=== PATIENT | female | born 1960 | race Caucasian/White ===

== ENCOUNTER 2017-08-20 05:41 | Emergency (ER) | payer MEDICARE ==
[2017-08-20] MEDS ORDERED: Sodium Chloride 0.9% 5 ML Syringe FLUSH PRN (06:52)
[2017-08-20] MEDS ORDERED: LORazepam 2 MG/ML SDV IVPUSH ONE ×2 (06:52→07:18)
[2017-08-20] MEDS ORDERED: Sodium Chloride 0.9% 1,000 ML IV ONE (06:52)
--- NOTE | 2017-08-20 07:06 | EDM.PDOC ---
ED HPI GENERAL MEDICAL PROBLEM - General Chief Complaint: General Stated Complaint: Really bad panic attack Time Seen by Provider: 08/20/17 06:51 Source of Information: Reports: Patient History Limitations: Reports: No Limitations - History of Present Illness INITIAL COMMENTS - FREE TEXT/NARRATIVE: Patient is a 57-year-old female who presents to the emergency department this morning with a complaint of a panic attack. Patient has a long-standing history of anxiety and panic attacks and is on chronic medication. Patient states that she moved to [facility] 2 months ago from [place] and was seen at the [facility] by Dr. Nazario. According to the patient, there was some issues on refilling medications. She had medications refilled by her physician in [place] one month ago. She ran out of her medications 2 days ago and presented to the [facility]. She states that she was a few minutes late and they refused to see her so she had a panic attack in the waiting room. Patient left facility and states that she has worsened since then. Patient has prescription bottle for lorazepam 1 mg 3 times a day 90. It was prescribed by a physician in [place] on 07/19/2017. Decided this morning that she needed to be seen in the emergency department. Patient oscillating between being completely coherent and acting mildly irrational. She denies homicidal or suicidal ideation and states that she has never considered either during the 15 years of her condition. Following a discussion where I let patient know that I can give her medicine in the emergency department to make her feel better and also a prescription to get through the weekend she seemed quite relieved. Patient does not want to follow-up at [facility], and I suggested that she contact the [facility] for possible follow-up. Patient denies chest pain, shortness of breath, headache, or fever. Onset: Gradual Duration: Chronic Severity: Moderate Improves with: Reports: Medication Worsens with: Reports: None Associated Symptoms: Reports: No Other Symptoms head Pain Score (Numeric/FACES): 7 - Related Data Allergies Allergy/AdvReac Type Severity Reaction Status Date / Time No Known Allergies Allergy Verified 08/20/17 05:47 Home Meds: Home Meds Acetaminophen/Diphenhydramine [Tylenol Pm Ex-Strength Caplet] 1 tab PO BEDTIME PRN 08/20/17 [History] Cholecalciferol (Vitamin D3) [Vitamin D] 50,000 units PO WEEKLY 08/20/17 [ History] Citalopram Hydrobromide [Celexa] 40 mg PO DAILY 08/20/17 [History] LORazepam 1 mg PO TID 08/20/17 [History] Topiramate [Topamax] 100 mg PO BID 08/20/17 [History] hydrOXYzine Pamoate [Vistaril] 100 mg PO Q8H 08/20/17 [History] ED ROS GENERAL - Review of Systems Review Of Systems: ROS reveals no pertinent complaints other than HPI. Constitutional: Reports: No Symptoms HEENT: Reports: No Symptoms Respiratory: Reports: No Symptoms Cardiovascular: Reports: No Symptoms Endocrine: Reports: No Symptoms GI/Abdominal: Reports: No Symptoms : Reports: No Symptoms Musculoskeletal: Reports: No Symptoms Skin: Reports: No Symptoms Neurological: Reports: No Symptoms Psychiatric: Reports: Anxiety. Denies: Homicidal Ideation, Suicidal Ideation Hematologic/Lymphatic: Reports: No Symptoms Immunologic: Reports: No Symptoms ED EXAM, GENERAL - Physical Exam Exam: See Below Exam Limited By: No Limitations General Appearance: Alert, WD/WN, Moderate Distress Nose: Normal Inspection, Normal Mucosa, No Blood Throat/Mouth: Normal Inspection, Normal Oropharynx, No Airway Compromise Head: Atraumatic, Normocephalic Respiratory/Chest: No Respiratory Distress, Lungs Clear, Normal Breath Sounds, No Accessory Muscle Use Cardiovascular: Regular Rate, Rhythm, No Murmur GI/Abdominal: Normal Bowel Sounds, Soft Extremities: Normal Inspection, No Pedal Edema Neurological: Alert, Oriented, Normal Cognition Psychiatric: Anxious, Tearful Skin Exam: Warm, Dry, Intact, Normal Color, No Rash Course - Vital Signs Last Recorded V/S: Last Vital Signs Temp 96.3 F 08/20/17 06:00 Pulse 98 08/20/17 06:00 Resp 22 H 08/20/17 06:00 BP 115/32 L 08/20/17 06:00 Pulse Ox 95 08/20/17 06:00 - Orders/Labs/Meds Orders: Active Orders 24 hr Category Date Time Status Peripheral IV Care [RC] . DIRECTED Care 08/20/17 06:52 Ordered LORazepam [Ativan] Med 08/20/17 06:52 Once 1 mg IVPUSH ONETIME ONE Sodium Chloride 0.9% @ 999 MLS/HR (1000ml) Med 08/20/17 06:52 Ordered Sodium Chloride 0.9% [Normal Saline] 1,000 ml IV .BOLUS Sodium Chloride 0.9% [Syrex Flush] Med 08/20/17 06:52 Ordered 5 ml FLUSH Q8HR PRN Peripheral IV Insertion Adult [OM.PC] Routine Oth 08/20/17 06:52 Ordered Medication Orders Sodium Chloride (Normal Saline) 1,000 mls @ 999 mls/hr IV .BOLUS ONE Stop: 08/20/17 07:52 Lorazepam (Ativan) 1 mg IVPUSH ONETIME ONE Stop: 08/20/17 06:53 Meds: Medications Generic Name Dose Route Start Last Admin Trade Name Freq PRN Reason Stop Dose Admin Sodium Chloride 1,000 mls @ 999 mls/hr 08/20/17 06:52 Normal Saline IV 08/20/17 07:52 .BOLUS ONE Lorazepam 1 mg 08/20/17 06:52 Ativan IVPUSH 08/20/17 06:53 ONETIME ONE - Re-Assessments/Exams Free Text/Narrative Re-Assessment/Exam: 08/20/17 07:21 Patient afebrile, nontoxic appearing, vital signs stable, feels much better after IV Ativan. Patient will follow-up at [facility], or return to emergency department if symptoms continue or worsen. 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 Schedule appointment today. Return to the emergency department sooner if symptoms continue or worsen. Take medication as directed. - My Orders Last 24 Hours: My Active Orders 08/20/17 06:52 Peripheral IV Care [RC] . DIRECTED LORazepam [Ativan] 1 mg IVPUSH ONETIME ONE Sodium Chloride 0.9% @ 999 MLS/HR (1000ml) Sodium Chloride 0.9% [Normal Saline] 1,000 ml IV .BOLUS Sodium Chloride 0.9% [Syrex Flush] 5 ml FLUSH Q8HR PRN Peripheral IV Insertion Adult [OM.PC] Routine - Assessment/Plan Last 24 Hours: My Active Orders 08/20/17 06:52 Peripheral IV Care [RC] . DIRECTED LORazepam [Ativan] 1 mg IVPUSH ONETIME ONE Sodium Chloride 0.9% @ 999 MLS/HR (1000ml) Sodium Chloride 0.9% [Normal Saline] 1,000 ml IV .BOLUS Sodium Chloride 0.9% [Syrex Flush] 5 ml FLUSH Q8HR PRN Peripheral IV Insertion Adult [OM.PC] Routine Assessment:: Anxiety, panic attack Plan: Follow-up at [facility]
== END 2017-08-20 08:20 | disposition home or self-care (01) ==
LOC: KA.ED 05:41
DX: F41.0 Panic disorder [episodic paroxysmal anxiety] (principal); Z79.899 Other long term (current) drug therapy
CPT/HCPCS: 96361; 96374; 96375; 99283; J2060; J7030

== ENCOUNTER 2017-09-15 16:05 | Observation (INO) | payer MEDICARE ==
[2017-09-15 16:30] LABS: CHLORIDE,CL 106 mmol/L (98-115); SODIUM,NA 141 mmol/L (136-145)
[2017-09-15] MEDS: Ondansetron 4 MG/2 ML SDV IVPUSH PRN ×2 (16:58→21:33)
[2017-09-15] MEDS: HYDROmorphone 1 MG/ML Syringe IVPUSH PRN ×5 (17:10→22:30)
[2017-09-15] MEDS: Sodium Chloride 0.9% 50 ML IV SCH ×2 (18:12→19:04)
[2017-09-15] MEDS: Dextrose 5%-0.45% NaCl 1,000 ML IV SCH (18:13)
[2017-09-15] MEDS ORDERED: Magnesium Hydroxide 400 MG/5 ML Susp 30 ML Cup PO ONE (18:49)
[2017-09-15] MEDS: Iopamidol 612 MG/ML 75 ML Bottle IV ONE (19:04)
[2017-09-15] MEDS ORDERED: Bisacodyl 10 MG Supp RECTAL ONE (20:51)
[2017-09-15] MEDS ORDERED: hydrOXYzine Pamoate 25 MG Cap PO PRN (21:31)
[2017-09-15] MEDS: Nicotine 21 MG/24 Hr Patch TRDERM SCH (21:34)
[2017-09-15] MEDS: LORazepam 0.5 MG Tab PO SCH (22:29)
[2017-09-15] MEDS ORDERED: Cyclobenzaprine 10 MG Tab PO ONE (22:32)
[2017-09-16] MEDS: HYDROmorphone 1 MG/ML Syringe IVPUSH PRN ×4 (00:04→07:36)
[2017-09-16] MEDS: Topiramate 25 MG Tab PO SCH ×3 (01:19→21:31)
[2017-09-16] MEDS: Dextrose 5%-0.45% NaCl 1,000 ML IV SCH ×2 (05:11→18:40)
[2017-09-16] MEDS: Ondansetron 4 MG/2 ML SDV IVPUSH PRN ×2 (05:30→12:56)
[2017-09-16] MEDS ORDERED: Magnesium Hydroxide 400 MG/5 ML Susp 30 ML Cup PO ONE ×2 (06:03→09:00)
[2017-09-16] MEDS: LORazepam 0.5 MG Tab PO SCH ×3 (07:37→21:30)
[2017-09-16] MEDS ORDERED: Sodium Phosphate,Monobasic/Sodium Phosphate,Dibasic Enema 133 ML Bottle RECTAL ONE (08:42)
[2017-09-16] MEDS ORDERED: CARISOPRODOL 350 MG PO PRN (08:45)
[2017-09-16] MEDS ORDERED: Acetaminophen 500 MG Tab PO PRN (08:45)
[2017-09-16] MEDS ORDERED: Citalopram 20 MG Tab PO SCH (09:00)
[2017-09-16] MEDS ORDERED: LORazepam 0.5 MG Tab PO SCH (09:00)
[2017-09-16] MEDS ORDERED: Polyethylene Glycol 3350 Powder 17 GM Packet PO SCH (09:00)
[2017-09-16] MEDS ORDERED: TOPIRAMATE 100 MG PO SCH (09:00)
[2017-09-16] MEDS: Nicotine 21 MG/24 Hr Patch TRDERM SCH (09:15)
[2017-09-16] MEDS: Morphine 2 MG/ML Syringe IV PRN ×2 (09:24→11:27)
[2017-09-16] MEDS: hydrOXYzine Pamoate 25 MG Cap PO SCH ×3 (10:05→21:31)
[2017-09-16] MEDS: Iopamidol 612 MG/ML 75 ML Bottle IV ONE (11:34)
[2017-09-16] MEDS: Acetaminophen 325 MG Tab PO PRN ×2 (11:38→21:52)
[2017-09-16] MEDS ORDERED: Morphine 2 MG/ML Syringe IVPUSH ONE (12:50)
--- NOTE | 2017-09-16 14:12 | PN ---
09/16/2017PATIENT NAME: ARLENE COTTO This is a 57-year-old female who was admitted yesterday with constipation, abdominal bloating, nausea, and poor appetite. Lab work yesterday showed a normal white count of 8.3. There were no abnormalities on the chemistry panel. She has only one kidney with the right kidney being markedly atrophic according to the CAT scan that was performed yesterday. I will elaborate more on the CAT scan later. Renal function yesterday showed a BUN of 15 and a creatinine of 1.12 and a GFR of 51. Lab results from today shows a white blood cell count of 13.6 with a left shift of neutrophils being 73.8%. Chemistry panel today shows an elevated creatinine of 1.29, yesterday normal at 1.12. This may be secondary to the contrast dye that she received prior to her CAT scan. She received intravenous contrast yesterday. GFR today is 43. Liver function tests were normal. CAT scan was performed yesterday after admission and showed marked atrophy of the right kidney. There was moderate stool throughout the colon with a normal appendix. No ileus or obstruction. No hernia, abscess, or inflammatory process. There is minimal diverticulosis of the left hemicolon. The patient has been using Dilaudid for pain. She requires the Dilaudid every hour. Apparently, our pharmacy is low on Dilaudid and we have switched this now to morphine which the patient says is not as effective. She is quite uncomfortable yet as she has not had a bowel movement. She has had several doses of milk of magnesia as well as a rectal suppository without any results. We did add a clear liquid diet in today. She is tolerating that well. She has had some nausea without any vomiting. She has received Zofran for the same. PHYSICAL EXAMINATION: VITAL SIGNS: Today, temp is 97.6, pulse 91, respirations 16, blood pressure 117/59, oxygen saturation is 95% on room air. SKIN: Warm and dry to touch. HEART: Normal. LUNGS: Normal. ABDOMEN: She does have a distended abdomen which is somewhat tender to touch. Bowel sounds are high pitched with active bowel sounds in all four quadrants. IMPRESSION: 1. Constipation. We will give her MiraLAX today as well as an enema. Hopefully, we can get her to move some stool through her colon. The CT scan did not show any ileus or obstruction. There is no abscess or inflammatory process. No hernias either. 2. Leukocytosis. White count yesterday was normal, today it is 13.6 with a mild left shift. She is afebrile. I do not feel that antibiotics are warranted at this time. I do not believe that it is an infective process. 3. Elevated creatinine in a 57-year-old patient with a history of marked atrophy of the right kidney. We will continue IV hydration today and encourage fluids. We did discuss possible later discharge this afternoon. However, due to the abnormalities in her lab work, I would like her to stay till tomorrow so we can monitor these to normal. She is agreeable with this plan. I did review her lab work as well as her CAT scan results with her. We did have a discussion in regard to the frequent use of the narcotic pain medication. The narcotics may serve too slow the colon down even more. She verbalizes understanding. /[id number]/MODL
[2017-09-16] MEDS ORDERED: LORazepam 2 MG/ML SDV IVPUSH ONE (14:15)
[2017-09-16] MEDS ORDERED: Ondansetron 4 MG Tab.DIS PO PRN (17:00)
[2017-09-16] MEDS ORDERED: diphenhydrAMINE 25 MG Cap PO PRN (21:00)
[2017-09-17] MEDS ORDERED: Cholecalciferol (Vitamin D3) 1,000 Unit Tab PO SCH (09:00)
--- NOTE | 2017-09-17 14:46 | PN ---
09/16/2017PATIENT NAME: ARLENE COTTO ADDITIONAL PROGRESS NOTE This is a 57-year-old female, who was admitted yesterday with constipation. Her CT did confirm moderate amount of colonic stool. She has started having stool and it does have some visible blood in it. We have stool tests pending for her. I did discuss the case over the phone with Dr. Pamella Ness. She advised stopping the narcotic pain medications due to the fact that it slows down the transit time of the colon. The patient has been requiring high doses of narcotic medications. When I spoke with the patient regarding this, she became very terse and used several phrases of profanity, threatened to leave the facility. We did have a long discussion in regard to pain control. She is limited as far as nonsteroidals due to the fact that she has an atrophic right kidney. I consulted with pharmacy, who recommended trying orphenadrine 60 mg IV b.i.d. This is a skeletal muscle relaxant. This may help her pain. In addition to this, we will give her one time dose of intravenous Ativan. The patient does take lorazepam 1 mg p.o. t.i.d. at home. The patient seems agreeable to this. Other options that we discussed were possibly Bentyl and/or Solu-Medrol. We will try this combination at this time. The patient does take Soma or carisoprodol at home as a muscle relaxant. This is not on her formulary. I did order Flexeril in place of the Soma; however, the patient is not able to take it as it causes her to be more stiff per her report. As stated before, stool samples have been obtained on the patient's stool. They are still pending. Test pending include C. diff toxin, stool culture, Hemoccult of stool, and white blood cells of stool. Fecal Helicobacter pylori was also ordered. /[id number]/MODL
== END 2017-09-16 22:55 | disposition left against medical advice (07) ==
LOC: KA.OC 16:05 → KA.MS 16:14
DX: K59.00 Constipation, unspecified (principal); D72.829 Elevated white blood cell count, unspecified; R79.89 Other specified abnormal findings of blood chemistry; F41.9 Anxiety disorder, unspecified; F32.9 Major depressive disorder, single episode, unspecified; G43.909 Migraine, unspecified, not intractable, without status migrainosus; F17.210 Nicotine dependence, cigarettes, uncomplicated; Z79.899 Other long term (current) drug therapy
CPT/HCPCS: 36415; 74177; 80053; 82272; 85025; 87045; 87046; 87324; 89055; 96361; 96374; 96375; 96376; A9270-GY; G0378; J1170; J2060; J2270; J2360; J2405; J7042; J7050; Q0177; Q9967

== ENCOUNTER 2017-10-19 11:31 | Day surgery (SDC) | payer MEDICARE ==
[~2017-10-19 11:31] MED LIST: Lactated Ringers 1,000 ML IV SCH; Sodium Chloride 0.9% 5 ML Syringe FLUSH PRN
[2017-10-19] MEDS ORDERED: Propofol 200 MG/20 ML SDV ONE ×2 (12:02→12:10)
[2017-10-19] MEDS ORDERED: Midazolam 1 MG/ML 2 ML SDV ONE (12:02)
--- NOTE | 2017-10-19 12:59 | PCM.PN ---
- General Info Date of Service: 10/19/17 - Review of Systems Systems Review Comment:: 57-year-old female here for colonoscopy. She has a history of left sided abdominal pain. Recent CT scan also showed filling defect in the right colon. She is medically stable to proceed today. There is been no significant recent change in her health status. I discussed the proposed colonoscopy with the patient. Risks and possible complications have been discussed. She agrees to proceed. - Patient Data Vitals - Most Recent: Last Vital Signs Temp 98 F 10/19/17 11:15 Pulse 70 10/19/17 11:15 Resp 16 10/19/17 11:15 BP 108/61 10/19/17 11:15 Pulse Ox 98 10/19/17 11:15 Weight - Most Recent: 69.4 kg Lab Results Last 24 Hours: Laboratory Results - last 24 hr 10/19/17 Range/Units 11:15 Urine HCG, Qual Negative (NEGATIVE) Med Orders - Current: Current Medications Lactated Ringer's (Ringers, Lactated) 1,000 mls @ 50 mls/hr IV ASDIRECTED SHANELL Last Admin: 10/19/17 12:50 Dose: 50 mls/hr Sodium Chloride (Syrex Flush) 5 ml FLUSH Q8HR PRN PRN Reason: Keep Vein Open - Problem List Review Problem List Initiated/Reviewed/Updated: Yes - My Orders Last 24 Hours: My Active Orders 10/18/17 14:20 Resuscitation Status Routine 10/19/17 11:15 Peripheral IV Care [RC] . DIRECTED Vital Signs [RC] PER UNIT ROUTINE HCG QUALITATIVE,URINE [URCHEM] Routine Lactated Ringers [Ringers, Lactated] 1,000 ml IV ASDIRECTED Sodium Chloride 0.9% [Syrex Flush] 5 ml FLUSH Q8HR PRN Peripheral IV Insertion Adult [OM.PC] Routine 10/19/17 11:45 Patient to Empty Bladder [RC] ASDIRECTED 10/19/17 12:00 Verify Patient Consent Obtain [RC] ASDIRECTED 10/19/17 Breakfast Nothing Per Oral Diet [DIET] - Assessment Assessment:: Abdominal pain Abnormal CT scan - Plan Plan:: Colonoscopy
[2017-10-19] MEDS ORDERED: Propofol 200 MG/20 ML SDV IV ONE (13:05)
[2017-10-19] MEDS ORDERED: Midazolam 1 MG/ML 2 ML SDV IV ONE (13:05)
--- NOTE | 2017-10-19 13:51 | PCM.OPNOTE ---
- General Post-Op/Procedure Note Date of Surgery/Procedure: 10/19/17 Operative Procedure(s): Colonoscopy Findings: Mild Sigmoid Diverticulosis No sign of ascending colon mass Pre Op Diagnosis: Abdominal Pain. Possible ascending colon mass Post-Op Diagnosis: Diverticulosis Anesthesia Technique: MAC Primary Surgeon: Malik Fermin Pathology: none EBL in mLs: 0 Complications: None Condition: Good
--- NOTE | 2017-10-20 01:41 | PROC ---
PROVIDER: Malik Fermin MD REFERRING PROVIDER: MELLY Meza PRE-PROCEDURE DIAGNOSIS: Abdominal pain and abnormal CT scan. POST-PROCEDURE DIAGNOSIS: Diverticulosis. PROCEDURE PERFORMED: Colonoscopy. INDICATIONS FOR SURGERY: This 57-year-old female has been having left-sided abdominal pain. This has persisted despite the use of antibiotics for treatment of presumed diverticulitis. A recent CT scan also showed a possible filling defect in the ascending colon. FINDINGS: The patient is noted to have a mild degree of uncomplicated and not acutely inflamed diverticulosis of the sigmoid colon. The diverticula are small and do not appear to show any degree of inflammation or other complication. The colon otherwise appears normal. No sign of a filling defect in the ascending or other areas of the colon is seen. PROCEDURE: The patient was taken to the operating room. She was given intravenous sedation and with her in the left lateral decubitus position, digital rectal exam was performed showing no rectal masses. The Olympus colonoscope was inserted into the rectum. Retroflexed examination of the rectal canal is performed. The scope was then carefully advanced under direct visualization through the entire length of the colon until the cecum was reached. Cecal acquisition is confirmed by noting the normal internal cecal anatomy including the appendiceal orifice and ileocecal valve. The cecum was carefully examined and then the scope was slowly withdrawn sequentially re- examining the colonic segments until the entire colon and rectum had been fully examined. The scope was removed and the patient was taken from the operating room in satisfactory condition. ESTIMATED BLOOD LOSS: Zero. COMPLICATIONS: None. PROGNOSIS: Good. /[id number]/MODL
== END 2017-10-19 14:50 | disposition home or self-care (01) ==
LOC: KA.SDS 11:31
PROVIDERS: ATTEND Surgery
DX: R10.32 Left lower quadrant pain (principal); R93.5 Abnormal findings on diagnostic imaging of other abdominal regions, including retroperitoneum; K57.30 Diverticulosis of large intestine without perforation or abscess without bleeding; F17.200 Nicotine dependence, unspecified, uncomplicated; Z79.899 Other long term (current) drug therapy
CPT/HCPCS: 00811; 81025; J2250; J2704; J7120

== ENCOUNTER 2017-12-30 14:55 | Observation (INO) | payer MEDICARE ==
[2017-12-30] MEDS ORDERED: Sodium Chloride 0.9% 5 ML Syringe FLUSH PRN (15:14)
[2017-12-30] MEDS ORDERED: Metoclopramide 10 MG/2 ML SDV IVPUSH ONE (15:37)
[2017-12-30] MEDS ORDERED: Sodium Chloride 0.9% 1,000 ML IV ONE (15:37)
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
[2017-12-30 15:49] LABS: ANION GAP 17.5 mmol/L (5-15); CHLORIDE,CL 106 mmol/L (98-115); SODIUM,NA 142 mmol/L (136-145)
[2017-12-30] MEDS ORDERED: Potassium Bicarbonate/Potassium Chloride 25 MEQ Tab.Eff PO ONE (15:57)
[2017-12-30] MEDS ORDERED: cefTRIAXone 1 GM Vial IVPUSH ONE (17:13)
[2017-12-30] MEDS ORDERED: cefTRIAXone 1 GM Vial ONE (17:13)
[2017-12-30] MEDS ORDERED: Ondansetron 4 MG/2 ML SDV ONE (17:13)
[2017-12-30] MEDS ORDERED: Temazepam 15 MG Cap PO PRN (17:14)
[2017-12-30] MEDS ORDERED: Nicotine 21 MG/24 Hr Patch TRDERM ONE (21:54)
[2017-12-30] MEDS: Ondansetron 4 MG/2 ML SDV IV PRN (21:55)
[2017-12-30] MEDS: LORazepam 0.5 MG Tab PO PRN (22:06)
[2017-12-31] MEDS: LORazepam 0.5 MG Tab PO PRN (01:10)
[2017-12-31] MEDS ORDERED: Iopamidol 612 MG/ML 75 ML Bottle IV ONE (07:41)
[2017-12-31] MEDS ORDERED: Diatrizoate Meglumine/Diatrizoate Sodium 37% 120 ML Bottle PO ONE (07:41)
[2017-12-31] MEDS ORDERED: Sodium Chloride 0.9% 50 ML IV SCH (07:45)
[2017-12-31 07:46] LABS: ANION GAP 18.5 mmol/L (5-15); CHLORIDE,CL 109 mmol/L (98-115); SODIUM,NA 149 mmol/L (136-145)
[2017-12-31] MEDS ORDERED: SOMA 350 MG PO PRN (09:08)
[2017-12-31] MEDS ORDERED: Promethazine 25 MG Tab PO PRN (09:08)
[2017-12-31] MEDS ORDERED: Acetaminophen/oxyCODONE 325-5 MG Tab PO PRN (09:08)
[2017-12-31] MEDS ORDERED: hydrOXYzine Pamoate 25 MG Cap PO PRN (09:08)
[2017-12-31] MEDS: Ondansetron 4 MG/2 ML SDV IV PRN ×3 (09:23→21:31)
[2017-12-31] MEDS: Citalopram 20 MG Tab PO SCH (10:04)
[2017-12-31] MEDS: LORazepam 0.5 MG Tab PO SCH ×3 (10:04→21:40)
[2017-12-31] MEDS: Nicotine 21 MG/24 Hr Patch TRDERM SCH (10:05)
[2017-12-31] MEDS: Sodium Chloride 0.9% 5 ML Syringe FLUSH PRN ×2 (10:09→15:41)
[2017-12-31] MEDS: Sodium Chloride 0.9% 1,000 ML IV SCH ×2 (10:09→17:45)
[2017-12-31] MEDS: Topiramate 25 MG Tab PO SCH ×2 (10:18→21:40)
[2017-12-31] MEDS: Gabapentin 300 MG Cap PO SCH ×2 (10:18→23:54)
[2017-12-31] MEDS: Cholecalciferol (Vitamin D3) 1,000 Unit Tab PO SCH (10:19)
[2017-12-31] MEDS: Ketorolac 30 MG/ML SDV IVPUSH PRN ×3 (11:25→23:55)
--- NOTE | 2017-12-31 13:36 | PN ---
12/31/2017 PATIENT NAME: ARLENE COTTO SUBJECTIVE: This is a 57-year-old female who presented to the emergency room yesterday afternoon with a complaint of abdominal pain. The patient has a history of chronic abdominal pain as well as diverticulosis and underwent a colonoscopy on 10/19/2017. Results of the colonoscopy showed small diverticula, but no acute inflammation. The patient stated to the emergency room provider that she had been having abdominal discomfort with nausea and vomiting for 5 days. She has been unable to consume food or hold down liquids as well as her regular medication. She did contact me prior to coming to the emergency room and I did advise the patient to go to the emergency department. Lab work upon admission to the emergency room, she did have a small bump in her white blood cell count at 11.76 with no left shift whatsoever. She was hypokalemic with a potassium of 2.9, it was treated with effervescent potassium in the emergency room. The remainder of her chemistry panel was normal with the exception of an anion gap of 17.5, not clear if this is clinically significant. She was found to have a urinary tract infection and was given one dose of ceftriaxone in the emergency room. She was also given a fluid bolus of normal saline in the emergency room as well. She was admitted for observation. In the emergency room, she also received Reglan as well as Zofran. Today, the patient states she is feeling somewhat better. She did have an abdominal CT this morning which showed no acute findings. The patient continues to have left-sided abdominal pain as well as some nausea. She was given a sleeping pill last night and apparently had the opposite effect on her, and she became quite restless. She was given a one time dose of lorazepam in addition to her regular scheduled lorazepam. She has tramadol scheduled for pain. She also has had a one-time prescription of oxycodone at home, which we will try not to give her here. It should be noted that the flat plate of the abdomen x-ray performed in the emergency room prior to admission showed a mild ileus. The patient has been tolerating a clear liquid diet. She does complain of a significant amount of nausea, however. OBJECTIVE: VITAL SIGNS: She is afebrile. Her pulse rate is 72, respirations 18, blood pressure is 107/58. Pulse oximetry is 99%. SKIN: Warm and dry to touch. HEART AND LUNGS: Normal. ABDOMEN: She does have some mild tenderness with palpation of the left lower quadrant. No guarding, rebound tenderness, or rigidity. She does have positive bowel sounds in all 4 quadrants. IMPRESSION: 1. Mild ileus causing abdominal pain and some nausea. We will continue giving Zofran as before. We will advance her diet to a full liquid diet today. CAT scan findings were reviewed. There are no acute findings. 2. Urinary tract infection. She will be given a daily dose of ceftriaxone 1 g intravenously. 3. Hypokalemia with an admission potassium of 2.9, which is now corrected to 3.3. 4. Nausea. We will treat her with antiemetics. I will also resume intravenous fluids of normal saline at 125 mL/hour. Labs will be repeated in the morning to include a CBC and CMP. She is a possible discharge for tomorrow. I will see her tomorrow and make that determination at that time. /[id number]/MODL
[2017-12-31] MEDS: traMADol 50 MG Tab PO PRN ×2 (14:37→21:38)
[2017-12-31] MEDS: cefTRIAXone 1 GM Vial IVPUSH SCH (15:39)
[2017-12-31] MEDS ORDERED: diphenhydrAMINE 25 MG Cap PO PRN (21:00)
[2017-12-31] MEDS ORDERED: Acetaminophen 500 MG Tab PO PRN (21:00)
[2018-01-01] MEDS: Sodium Chloride 0.9% 1,000 ML IV SCH ×2 (01:47→09:26)
[2018-01-01] MEDS: Ondansetron 4 MG/2 ML SDV IV PRN ×2 (02:44→09:07)
[2018-01-01] MEDS ORDERED: Diazepam 5 MG Tab PO ONE (02:55)
[2018-01-01] MEDS: traMADol 50 MG Tab PO PRN (05:21)
[2018-01-01] MEDS: Ketorolac 30 MG/ML SDV IVPUSH PRN ×2 (05:55→11:57)
[2018-01-01 08:03] LABS: ANION GAP 11.5 mmol/L (5-15); CHLORIDE,CL 113 mmol/L (98-115); SODIUM,NA 147 mmol/L (136-145)
[2018-01-01] MEDS ORDERED: Potassium Chloride 20 MEQ in Premix Bag 1 BAG IV ONE (08:35)
[2018-01-01] MEDS ORDERED: HYDROmorphone 1 MG/ML Syringe IVPUSH ONE (08:40)
[2018-01-01] MEDS: Citalopram 20 MG Tab PO SCH (09:18)
[2018-01-01] MEDS: Gabapentin 300 MG Cap PO SCH (09:18)
[2018-01-01] MEDS: Nicotine 21 MG/24 Hr Patch TRDERM SCH (09:19)
[2018-01-01] MEDS: Cholecalciferol (Vitamin D3) 1,000 Unit Tab PO SCH (09:19)
[2018-01-01] MEDS: Topiramate 25 MG Tab PO SCH (09:20)
[2018-01-01] MEDS: LORazepam 0.5 MG Tab PO SCH (09:49)
[2018-01-01] MEDS ORDERED: Ondansetron 4 MG Tab.DIS PO ONE (12:59)
[2018-01-01] MEDS: cefTRIAXone 1 GM Vial IVPUSH SCH (13:00)
--- NOTE | 2018-01-03 09:17 | DISCH ---
HOSPITAL COURSE: This is a 57-year-old female who was admitted to the hospital through the emergency room on 12/29/2017. She was having abdominal pain and having a difficult time with nausea and vomiting to the point where she had not taken anything considerably by oral route for several days. Flat plate and upright of the abdomen showed a mild ileus. She did have a CT scan yesterday which showed no acute process. She had been treated prior to that time for suspected diverticulitis. She was found to have a urinary tract infection, and she has been treated with ceftriaxone 1 g IM daily since admission. The patient is feeling better. She has had several bowel movements and feels as though the ileus has resolved. She is tolerating a full liquid diet. We will progress her diet today to a soft diet. She does complain of a headache. She received medication during the night, which was not effective. Due to the fact that she did have an ileus, we did try to refrain from narcotic pain medications. However, the Toradol that she has gotten IV is not effective. PHYSICAL EXAM ON DISCHARGE: VITAL SIGNS: Temp is 98.3, pulse is 55, respirations 20, blood pressure 131/75, her O2 saturation is 97% on room air. SKIN: Warm and dry to touch. HEART AND LUNGS: Normal. ABDOMEN: She has much less tenderness in her abdomen than she had yesterday and the day before on exam. Bowel sounds are present in all 4 quadrants. EXTREMITIES: There is no pedal edema. IMPRESSION: 1. Mild ileus, this is resolved. 2. Urinary tract infection. She did have a prior antibiotic at home, namely Cipro and Flagyl actually. We will stop the Flagyl and continue the Cipro until it is gone. We will repeat a UA on outpatient. 3. Hypokalemia. She has hypokalemia again today with a potassium of 3.1. We will replace her potassium intravenously with 20 mEq as a one time dose today. She will return to the hospital on 01/03/2018 for repeat potassium. She will follow up with me at the [facility] on 01/07/2018. The remainder of her chronic medical conditions are stable at this time. She will continue on same medications. She does not have any new medications to be discharged with. Should she have any problems, questions, or concerns when she returns home, she will call the clinic or the hospital. SIGNIFICANT LABS XRAYS AND CONSULTATION FINDINGS: Significant lab datafor today, sodium is a little high at 147, it was 149 yesterday. Potassium on admission was 2.9, it was replaced orally and yesterday it was 3.3 and now today is 3.1. Calcium is 7.8, total protein 5.5, albumin 2.91, these are all low values. I believe this is a nutritional issue. She has not been able to eat significantly over the last week. She is doing better with that now. /[id number]/MODL
== END 2018-01-01 13:30 | disposition home or self-care (01) ==
LOC: KA.ED 14:55 → KA.MS 17:41
PROVIDERS: ADMIT Physician Assistant Surgical
DX: K56.7 Ileus, unspecified (principal); N39.0 Urinary tract infection, site not specified; F17.210 Nicotine dependence, cigarettes, uncomplicated; E87.6 Hypokalemia; Z79.899 Other long term (current) drug therapy
CPT/HCPCS: 36415; 74022; 74177; 80053; 81001; 83690; 85025; 87086; 87088; 87186; 96361; 96365; 96366; 96374; 96375; 96376; 99285; A9270-GY; G0378; J0696; J1170; J1885; J2405; J2765; J3480; J7030; J7050; Q0177; Q9963; Q9967

== ENCOUNTER 2018-05-28 21:30 | Emergency (ER) | payer MEDICARE ==
[2018-05-28] MEDS ORDERED: methylPREDNISolone Sodium Succinate 125 MG/2 ML SDV IV ONE (21:45)
[2018-05-28] MEDS ORDERED: diphenhydrAMINE 50 MG/ML SDV ONE (21:50)
[2018-05-28] MEDS ORDERED: diphenhydrAMINE 50 MG/ML SDV IVPUSH ONE (21:50)
[2018-05-28] MEDS ORDERED: methylPREDNISolone Sodium Succinate 125 MG/2 ML SDV ONE (21:51)
[2018-05-28] MEDS ORDERED: hydrALAZINE 20 MG/ML SDV IVPUSH ONE (22:09)
[2018-05-28] MEDS ORDERED: hydrOXYzine HCl 50 MG/ML SDV IM ONE (22:15)
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
[2018-05-28] MEDS ORDERED: predniSONE 20 MG Tab ONE (22:50)
[2018-05-28] MEDS ORDERED: predniSONE 20 MG Tab PO ONE (23:00)
== END 2018-05-28 23:00 | disposition home or self-care (01) ==
LOC: KA.ED 21:30
DX: L50.9 Urticaria, unspecified (principal); Z79.899 Other long term (current) drug therapy; Z87.891 Personal history of nicotine dependence
CPT/HCPCS: 96372; 96374; 96375; 99282; 99283; A9270-GY; J1200; J2930; J3410

== ENCOUNTER 2019-03-16 12:03 | Emergency (ER) | payer MEDICARE ==
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
[2019-03-16] MEDS ORDERED: Ketorolac 60 MG/2 ML SDV IM ONE (13:07)
--- NOTE | 2019-03-16 13:17 | CR ---
[id number] RAD/RAD Sacroiliac Joint 3V Exam: RAD Sacroiliac Joint 3V Clinical Data: RIGHT SI JOINT PAIN COMPARISON: CORRELATION IS MADE WITH THE CAT SCAN OF MARCH 18, 2018 FINDINGS: No fracture or dislocation is seen. Bone marrow density is abnormally decreased IMPRESSION: NO ACUTE BONY ABNORMALITY DIFFUSE ABNORMAL OSTEOPENIA Danny Thornton MD 03/16/19 [id number] Thank you for allowing us to participate in the care of your patient.
--- NOTE | 2019-03-16 13:18 | CR ---
[id number] RAD/RAD Foot Right 3V Min EXAM: RAD Foot Right 3V Min CLINICAL DATA: TRAUMA COMPARISON: NO PREVIOUS SIMILAR EXAM IS AVAILABLE. FINDINGS: Chronic deformity of the right first metatarsal is seen There is no fracture or dislocation. IMPRESSION: NO ACUTE PLAIN FILM ABNORMALITY Danny Thornton MD 03/16/19 [id number] Thank you for allowing us to participate in the care of your patient.
== END 2019-03-16 13:35 | disposition home or self-care (01) ==
LOC: KA.ED 12:03
DX: S90.121A Contusion of right lesser toe(s) without damage to nail, initial encounter (principal); M54.41 Lumbago with sciatica, right side; F41.9 Anxiety disorder, unspecified; F32.9 Major depressive disorder, single episode, unspecified; M19.90 Unspecified osteoarthritis, unspecified site; F17.210 Nicotine dependence, cigarettes, uncomplicated; Z88.5 Allergy status to narcotic agent; Z79.899 Other long term (current) drug therapy; W01.10XA Fall on same level from slipping, tripping and stumbling with subsequent striking against unspecified object, initial encounter
CPT/HCPCS: 72202; 73630-RT; 96372; 99283-25; J1885

== ENCOUNTER 2019-10-14 11:35 | Emergency (ER) | payer MEDICARE ==
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
[2019-10-14 12:22] LABS: ANION GAP 13.8 mmol/L (5-15); CHLORIDE,CL 107 mmol/L (98-115); SODIUM,NA 146 mmol/L (136-145)
--- NOTE | 2019-10-14 12:26 | CT ---
[id number] CT/CT Head WO IV EXAM: NONCONTRAST HEAD CT INDICATION: FALL, UNRESPONSIVE COMPARISON: None. DISCUSSION: There is mild generalized atrophy. The cullen and white matter are normal in attenuation. No mass effect or midline shift. No acute hemorrhage or extra-axial fluid collection. No acute territorial infarct is identified. A limited look at the orbits and paranasal sinuses is unremarkable. IMPRESSION: 1. No evidence of acute intracranial trauma. Lopez Reyna MD 10/14/19 1661 Thank you for allowing us to participate in the care of your patient.
--- NOTE | 2019-10-14 12:30 | CT ---
[id number] CT/CT Cervical Spine WO IV EXAM: NONCONTRAST CERVICAL SPINE CT INDICATION: Fall with unresponsiveness. COMPARISON: None. DISCUSSION: Gentle reversal of the cervical lordosis likely relates to patient positioning. The vertebral bodies are otherwise normal in height and alignment. No fracture or suspicious osseous lesion is identified. Moderate degenerative disc disease C5-C6 and C6-C7 with milder changes at the remaining disc levels. Mild to moderate facet arthropathy throughout the cervical spine. IMPRESSION: 1. No evidence of acute cervical spine trauma. Lopez Reyna MD 10/14/19 [id number] Thank you for allowing us to participate in the care of your patient.
[2019-10-14 12:37] LABS: BENZODIAZEPINES SCREEN,URINE POSITIVE (NEGATIVE); THC SCREEN,URINE 50 NG/ML POSITIVE (NEGATIVE)
[2019-10-14 12:38] LABS: BARBITURATE SCREEN,URINE NEGATIVE (NEGATIVE); TCA SCREEN,URINE NEGATIVE (NEGATIVE)
[2019-10-14] MEDS: Sodium Chloride 0.9% 1,000 ML IV ONE (12:58)
[2019-10-14] MEDS: Naloxone 0.4 MG/ML SDV IVPUSH ONE (13:18)
[2019-10-14] MEDS: Sodium Chloride 0.9% 1,000 ML IV SCH (14:14)
== END 2019-10-14 14:40 ==
LOC: KA.ED 11:35
DX: T50.904A Poisoning by unspecified drugs, medicaments and biological substances, undetermined, initial encounter (principal); R41.0 Disorientation, unspecified; H57.04 Mydriasis; F12.10 Cannabis abuse, uncomplicated; F41.9 Anxiety disorder, unspecified; F32.9 Major depressive disorder, single episode, unspecified; Z88.5 Allergy status to narcotic agent; Z79.899 Other long term (current) drug therapy
CPT/HCPCS: 70450; 72125; 80053; 80305-QW; 80307; 85025; 96361; 96374; 99284; 99285-25; J2310; J7030

== ENCOUNTER 2019-11-04 07:50 | Emergency (ER) | payer MEDICARE ==
[2019-11-04] MEDS: LORazepam 0.5 MG Tab PO ONE (08:24)
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
[2019-11-04 09:25] LABS: BARBITURATE SCREEN,URINE NEGATIVE (NEGATIVE); BENZODIAZEPINES SCREEN,URINE NEGATIVE (NEGATIVE); TCA SCREEN,URINE POSITIVE (NEGATIVE); THC SCREEN,URINE 50 NG/ML POSITIVE (NEGATIVE)
== END 2019-11-04 09:45 | disposition home or self-care (01) ==
LOC: KA.ED 07:50
DX: F41.0 Panic disorder [episodic paroxysmal anxiety] (principal); F06.4 Anxiety disorder due to known physiological condition; N39.0 Urinary tract infection, site not specified; F32.9 Major depressive disorder, single episode, unspecified; M19.90 Unspecified osteoarthritis, unspecified site; F17.200 Nicotine dependence, unspecified, uncomplicated; Z79.899 Other long term (current) drug therapy; Z88.5 Allergy status to narcotic agent
CPT/HCPCS: 80305; 81001; 99283; A9270; 99284

== ENCOUNTER 2019-11-07 13:28 | Emergency (ER) | payer MEDICARE ==
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
== END 2019-11-07 14:55 | disposition home or self-care (01) ==
LOC: KA.ED 13:28
DX: F41.0 Panic disorder [episodic paroxysmal anxiety] (principal); F06.4 Anxiety disorder due to known physiological condition; Z76.5 Malingerer [conscious simulation]; F32.9 Major depressive disorder, single episode, unspecified; F17.210 Nicotine dependence, cigarettes, uncomplicated; Z79.899 Other long term (current) drug therapy; Z88.5 Allergy status to narcotic agent
CPT/HCPCS: 99283

== ENCOUNTER 2020-04-30 07:43 | Day surgery (SDC) | payer MEDICAID, MEDICARE ==
[2020-04-30] MEDS ORDERED: Ondansetron 4 MG/2 ML SDV IV ONE (07:44)
[2020-04-30] MEDS ORDERED: Propofol 200 MG/20 ML SDV IV ONE (07:44)
[2020-04-30] MEDS ORDERED: Midazolam 1 MG/ML 2 ML SDV IV ONE (07:44)
[2020-04-30] MEDS ORDERED: Sodium Chloride 0.9% 10 ML Syringe FLUSH PRN (08:00)
[2020-04-30] MEDS ORDERED: Lactated Ringers 1,000 ML IV SCH (08:00)
[2020-04-30] MEDS ORDERED: Lidocaine 2% 5 ML SDV ONE (08:59)
[2020-04-30] MEDS ORDERED: Propofol 200 MG/20 ML SDV ONE (08:59)
[2020-04-30] MEDS ORDERED: Midazolam 1 MG/ML 2 ML SDV ONE (08:59)
--- NOTE | 2020-04-30 09:25 | PCM.PN ---
- General Info Date of Service: 04/30/20 - Review of Systems Systems Review Comment:: 59-year-old female with symptoms of abdominal bloating and weight gain and also has worsening symptoms of upper abdominal pain and reflux referred for EGD. She is medically stable to proceed today. She did have a colonoscopy slightly more than a year ago. Examination today shows her to be alert her abdomen is rounded but soft and mildly diffusely tender. I have discussed the proposed operative procedure with the patient. She agrees to proceed excepting risks. Her recent history and physical is reviewed and no significant changes are noted. - Patient Data Vitals - Most Recent: Last Vital Signs Temp 97.7 F 04/30/20 07:54 Pulse 82 04/30/20 07:54 Resp 18 04/30/20 07:54 BP 123/63 04/30/20 07:54 Pulse Ox 98 04/30/20 07:54 Weight - Most Recent: 69.4 kg Med Orders - Current: Current Medications Lactated Ringer's (Ringers, Lactated) 1,000 mls @ 50 mls/hr IV ASDIRECTED [facility] Last Admin: 04/30/20 08:14 Dose: 50 mls/hr Documented by: Sodium Chloride (Saline Flush) 10 ml FLUSH Q8HR PRN PRN Reason: keep vein open Discontinued Medications Lidocaine (Xylocaine-Mpf 2%) Confirm Administered Dose 5 ml .ROUTE .STK-MED ONE Stop: 04/30/20 09:00 Midazolam HCl (Versed 1 Mg/Ml) Confirm Administered Dose 4 mg .ROUTE .STK-MED ONE Stop: 04/30/20 09:00 Propofol (Diprivan 20 Ml) Confirm Administered Dose 400 mg .ROUTE .STK-MED ONE Stop: 04/30/20 09:00 Sepsis Event Note - Focused Exam Vital Signs: Vital Signs Temp Pulse Resp BP Pulse Ox 04/30/20 07:54 97.7 F 82 18 123/63 98 - Problem List Review Problem List Initiated/Reviewed/Updated: Yes - My Orders Last 24 Hours: My Active Orders 04/29/20 15:49 Resuscitation Status Routine 04/30/20 08:00 Peripheral IV Care [RC] . DIRECTED Nothing Per Oral Diet [DIET] Lactated Ringers [Ringers, Lactated] 1,000 ml IV ASDIRECTED Sodium Chloride 0.9% [Saline Flush] 10 ml FLUSH Q8HR PRN Peripheral IV Insertion Adult [OM.PC] Routine 04/30/20 09:00 Verify Patient Consent Obtain [RC] ASDIRECTED - Assessment Assessment:: Weight gain GERD - Plan Plan:: EGD
--- NOTE | 2020-04-30 09:52 | PCM.OPNOTE ---
- General Post-Op/Procedure Note Date of Surgery/Procedure: 04/30/20 Operative Procedure(s): EGD with Biopsy Findings: Moderate reflux esophagitis at GE Jct Structures otherwise appear normal Pre Op Diagnosis: GERD. Weight gain Post-Op Diagnosis: Reflux esophagitis [place]est[place] Technique: [facility] [place]geon: Malik Fermin Pathology: Biopsies of Duodenum, Antrum, GE Jct EBL in mLs: 3 Complications: None Condition: Good
[2020-04-30 09:55] VITALS: PULSE 80
[2020-04-30 10:17] VITALS: BP 107/59
--- NOTE | 2020-04-30 10:20 | OR ---
DATE OF SURGERY: 04/30/2020 SURGEON: Malik Fermin MD PREOPERATIVE DIAGNOSIS: Gastroesophageal reflux disease, unexplained weight gain. POSTOPERATIVE DIAGNOSIS: Reflux esophagitis. OPERATION PERFORMED: Esophagogastroduodenoscopy with biopsy. INDICATIONS FOR SURGERY: This 59-year-old female has noticed over the past two months, increasing abdominal girth as well as an increase in her weight which is unexplained. She is also noticing increasing symptoms of acid reflux with upper abdominal discomfort and GERD symptoms. FINDINGS: The patient has a [id number] degree of inflammation at the GE junction, which appears to be secondary to acid reflux. No exudate or ulcerations are seen and no indication of any mass or stricturing is identified. The remainder of the patient's esophagus appears normal as does the lining of the stomach and duodenum. PROCEDURE: The patient was taken to the operating room. She was given intravenous sedation and with her in the left lateral decubitus position, the Olympus gastroscope was advanced through a mouth guard into the oral cavity. Under direct visualization, the scope was then advanced down through the oropharynx and into and through the esophagus, stomach, and into the duodenum where examination to the 3rd portion was performed. The duodenum was carefully examined and random biopsies were taken because of the patient's symptoms. The scope was withdrawn back into the stomach where full examination including retroflexed examination of the fundus was performed. Biopsies of the antrum were taken to rule out H pylori. The scope was withdrawn to the GE junction area where the irregularity is noted and biopsies are taken here as well. The remainder of the esophagus was re-examined as the scope was removed, and the patient is then taken from the operating room in satisfactory condition. ESTIMATED BLOOD LOSS: 3 mL. COMPLICATIONS: None. PROGNOSIS: Good. /[id number]/MODL
== END 2020-04-30 10:26 | disposition home or self-care (01) ==
LOC: KA.SDS 07:43
PROVIDERS: ATTEND Surgery
DX: K21.00 Gastro-esophageal reflux disease with esophagitis, without bleeding (principal)
CPT/HCPCS: 00731; J2250; J2405; J2704; J7120

== ENCOUNTER 2021-02-28 14:48 | Emergency (ER) | payer MEDICARE, MEDICAID ==
[2021-02-28] MEDS ORDERED: Ondansetron 4 MG/2 ML SDV IVPUSH ONE (15:06)
[2021-02-28] MEDS ORDERED: Sodium Chloride 0.9% 1,000 ML IV ONE (15:06)
[2021-02-28 15:38] LABS: ANION GAP 17.2 mmol/L (5-15); CHLORIDE,CL 109 mmol/L (98-107); SODIUM,NA 147 mmol/L (136-145)
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
[2021-02-28] MEDS ORDERED: Ondansetron 4 MG Tab.DIS PO ONE (16:35)
[2021-02-28] MEDS ORDERED: Ondansetron 4 MG Tab.DIS ONE (16:42)
== END 2021-02-28 16:58 | disposition home or self-care (01) ==
LOC: KA.ED 14:48
DX: E86.0 Dehydration (principal); R11.2 Nausea with vomiting, unspecified; F17.200 Nicotine dependence, unspecified, uncomplicated; Z88.5 Allergy status to narcotic agent; Z79.899 Other long term (current) drug therapy; Z20.822 Contact with and (suspected) exposure to COVID-19
CPT/HCPCS: 36415; 80053; 80307; 81001; 83690; 83735; 85025; 93005; 96374; 99284-25; A9270-GY; J2405; J7030; U0002

== ENCOUNTER 2021-10-12 12:33 | Emergency (ER) | payer MEDICARE ==
[2021-10-12] MEDS ORDERED: Sodium Chloride 0.9% 10 ML Syringe FLUSH PRN (12:39)
[2021-10-12] MEDS ORDERED: Ondansetron 4 MG/2 ML SDV IVPUSH ONE (12:45)
[2021-10-12] MEDS ORDERED: diphenhydrAMINE 50 MG/ML SDV IVPUSH ONE (12:45)
[2021-10-12] MEDS ORDERED: Sodium Chloride 0.9% 1,000 ML IV ONE (12:46)
[2021-10-12 13:08] LABS: ANION GAP 13.5 mmol/L (5-15)
[2021-10-12 13:12] VITALS: BP 127/81; PULSE 67
[2021-10-12] MEDS ORDERED: Promethazine 25 MG in Sodium Chloride 0.9% 100 ML IV ONE (13:23)
[2021-10-12] MEDS ORDERED: Ketorolac 30 MG/ML SDV IVPUSH ONE (13:24)
== END 2021-10-12 14:10 | disposition home or self-care (01) ==
LOC: KA.ED 12:33
DX: S06.300A Unspecified focal traumatic brain injury without loss of consciousness, initial encounter (principal); S80.02XA Contusion of left knee, initial encounter; F17.200 Nicotine dependence, unspecified, uncomplicated; Z88.5 Allergy status to narcotic agent; Z79.899 Other long term (current) drug therapy; Z20.822 Contact with and (suspected) exposure to COVID-19; W18.09XA Striking against other object with subsequent fall, initial encounter
CPT/HCPCS: 36415; 70450; 71046; 80053; 85025; 96361; 96374; 96375; 99284; 99284-25; J1200; J1885; J2405; J2550; J3490; J7030; U0002

== ENCOUNTER 2021-10-23 13:49 | Emergency (ER) | payer MEDICARE | END 2021-10-23 14:52 | disposition home or self-care (01) | LOC: KA.ED 13:49 | DX: K02.9 Dental caries, unspecified (principal); F17.210 Nicotine dependence, cigarettes, uncomplicated; Z88.5 Allergy status to narcotic agent; Z79.899 Other long term (current) drug therapy | CPT/HCPCS: 99282 ==

== ENCOUNTER 2022-03-18 08:05 | Observation (INO) | payer MEDICAID, MEDICARE ==
[2022-03-18] MEDS ORDERED: Ketorolac 30 MG/ML SDV IVPUSH ONE (08:30)
[2022-03-18] MEDS ORDERED: Sodium Chloride 0.9% 1,000 ML IV ONE (08:35)
[2022-03-18] MEDS: Sodium Chloride 0.9% 10 ML Syringe FLUSH PRN ×2 (08:37→10:19)
[2022-03-18 08:51] LABS: ANION GAP 14.1 mmol/L (5-15)
[2022-03-18] MEDS ORDERED: HYDROmorphone 1 MG/ML Syringe IVPUSH ONE (09:28)
[2022-03-18] MEDS ORDERED: Ondansetron 4 MG/2 ML SDV IVPUSH ONE (09:31)
[2022-03-18] MEDS ORDERED: cefTRIAXone 2 GM Vial IVPUSH ONE (10:02)
[2022-03-18] MEDS ORDERED: Acetaminophen/HYDROcodone 325-5 MG Tab PO PRN (10:47)
[2022-03-18] MEDS: Sodium Chloride 0.9% 1,000 ML IV SCH ×2 (11:30→18:09)
[2022-03-18] MEDS ORDERED: HYDROXYZINE PAMOATE 50 MG PO PRN (11:40)
[2022-03-18] MEDS ORDERED: PROMETHAZINE 25 MG PO PRN (11:40)
[2022-03-18] MEDS ORDERED: oxyCODONE 5 MG Tab PO ONE (13:22)
[2022-03-18] MEDS: LORazepam 0.5 MG Tab PO SCH ×2 (13:25→21:25)
[2022-03-18] MEDS: Nicotine 14 MG/24 Hr Patch TRDERM SCH (13:34)
[2022-03-18] MEDS ORDERED: CARISOPRODOL 350 MG PO SCH (14:00)
[2022-03-18] MEDS: Ondansetron 4 MG Tab.DIS PO PRN (18:07)
[2022-03-18] MEDS: Acetaminophen/HYDROcodone 325-5 MG Tab PO PRN ×2 (18:08→22:18)
[2022-03-18] MEDS ORDERED: traZODone 50 MG Tab PO SCH (21:00)
[2022-03-18] MEDS: Topiramate 25 MG Tab PO SCH (21:25)
[2022-03-19] MEDS: Sodium Chloride 0.9% 1,000 ML IV SCH ×2 (00:45→09:27)
[2022-03-19] MEDS: Ondansetron 4 MG Tab.DIS PO PRN ×2 (01:11→07:33)
[2022-03-19] MEDS: Acetaminophen/HYDROcodone 325-5 MG Tab PO PRN ×2 (02:18→07:34)
[2022-03-19] MEDS: Nicotine 14 MG/24 Hr Patch TRDERM SCH (08:14)
[2022-03-19] MEDS: LORazepam 0.5 MG Tab PO SCH ×2 (08:15→15:43)
[2022-03-19] MEDS: Topiramate 25 MG Tab PO SCH (08:16)
[2022-03-19] MEDS ORDERED: Escitalopram 10 MG Tab PO SCH (09:00)
[2022-03-19] MEDS ORDERED: Tamsulosin 0.4 MG Cap.ER PO SCH (09:00)
[2022-03-19] MEDS ORDERED: cefTRIAXone 1 GM Vial IVPUSH SCH (09:00)
[2022-03-19] MEDS ORDERED: Ketorolac 30 MG/ML SDV IVPUSH PRN (09:02)
[2022-03-19] MEDS ORDERED: HYDROmorphone 2 MG Tab PO PRN (09:03)
[2022-03-19] MEDS ORDERED: Hydrocortisone 1% Crm 30 GM Tube TOP SCH (10:15)
== END 2022-03-19 15:50 ==
LOC: KA.ED 08:05 → KA.MS 10:31
PROVIDERS: ADMIT Internal Medicine; ATTEND Internal Medicine
DX: N39.0 Urinary tract infection, site not specified (principal); R10.31 Right lower quadrant pain; D72.829 Elevated white blood cell count, unspecified; N13.2 Hydronephrosis with renal and ureteral calculous obstruction; K58.9 Irritable bowel syndrome, unspecified; F17.210 Nicotine dependence, cigarettes, uncomplicated; E55.9 Vitamin D deficiency, unspecified; M85.80 Other specified disorders of bone density and structure, unspecified site; M19.90 Unspecified osteoarthritis, unspecified site; Z98.890 Other specified postprocedural states; Z79.899 Other long term (current) drug therapy
CPT/HCPCS: 36415; 51798; 71046; 74176; 80048; 80053; 81003; 82150; 83605; 83690; 85025; 87040; 87086; 87088; 87186; A9270-GY; J0696; J1170; J1885; J2405; J3490; J7030

== ENCOUNTER 2022-06-14 15:18 | Emergency (ER) | payer MEDICARE ==
[2022-06-14] MEDS ORDERED: Acetaminophen 500 MG Tab PO ONE (16:33)
[2022-06-14 17:03] LABS: ANION GAP 9.8 mmol/L (5-15)
== END 2022-06-14 18:20 | disposition home or self-care (01) ==
LOC: KA.ED 15:18
DX: G89.29 Other chronic pain (principal); M25.511 Pain in right shoulder; Z59.48 Other specified lack of adequate food; F17.200 Nicotine dependence, unspecified, uncomplicated; Z88.5 Allergy status to narcotic agent; Z79.899 Other long term (current) drug therapy
CPT/HCPCS: 36415; 80048; 81001; 85025; 99284; A9270-GY

== ENCOUNTER 2022-10-16 18:48 | Emergency (ER) | payer MEDICARE ==
[2022-10-16] MEDS ORDERED: Amoxicillin/Clavulanate K 875-125 MG Tab PO ONE (19:27)
[2022-10-16] MEDS ORDERED: traMADol 50 MG Tab PO ONE (19:27)
== END 2022-10-16 20:08 | disposition home or self-care (01) ==
LOC: KA.ED 18:48
DX: K04.7 Periapical abscess without sinus (principal); K00.7 Teething syndrome; Z86.16 Personal history of COVID-19; Z88.5 Allergy status to narcotic agent
CPT/HCPCS: 99282; 99283; A9270-GY

== ENCOUNTER 2024-03-07 10:31 | Emergency (ER) | payer OTHER ==
[2024-03-07] MEDS ORDERED: Sodium Chloride 0.9% 10 ML Syringe FLUSH PRN (10:36)
[2024-03-07 11:14] LABS: BASOPHILS ABSOLUTE AUTO 0.05 10^3/uL (0.00-0.10); BASOPHILS PERCENT AUTO 0.5 % (0.0-1.0); EOSINOPHILS ABSOLUTE AUTO 0.14 10^3/uL (0.10-0.30); EOSINOPHILS PERCENT AUTO 1.5 % (1.0-3.0); HEMATOCRIT 43.1 % (37.0-47.0); HEMOGLOBIN 14.4 g/dL (12.0-16.0); IMMATURE GRAN ABSOLUTE AUTO 0.02 10^3/uL (0.00-0.50); IMMATURE GRAN PERCENT AUTO 0.2 % (0.0-5.0); LYMPHOCYTES ABSOLUTE AUTO 2.43 10^3/uL (1.00-4.00); MEAN CORPUSCULAR HEMOGLOBIN 32.7 pg (27.0-31.0); MEAN CORPUSCULAR HGB CONC 33.4 g/dL (32.0-36.0); MEAN CORPUSCULAR VOLUME 97.7 fL (82.0-92.0); MEAN PLATELET VOLUME 8.9 fL (7.4-10.4); MONOCYTES ABSOLUTE AUTO 0.77 10^3/uL (0.10-0.80); MONOCYTES PERCENT AUTO 8.3 % (2.0-8.0); NEUTROPHILS ABSOLUTE AUTO 5.92 10^3/uL (2.50-7.00); NEUTROPHILS PERCENT AUTO 63.5 % (50.0-70.0); PLATELET COUNT,PLT 208 10^3/uL (150-400); RED BLOOD CELL COUNT 4.41 10^6/uL (3.80-5.50); RED CELL DISTRIBUTION WIDTH 14.3 % (11.5-14.5); WHITE BLOOD CELL COUNT,WBC 9.33 10^3/uL (5.00-10.00)
[2024-03-07 11:32] LABS: ALANINE AMINOTRANSFERASE,ALT 23 U/L (14-63); ALBUMIN 3.68 g/dL (3.40-5.00); ALKALINE PHOSPHATASE 110 U/L (46-116); ANION GAP 15.2 mmol/L (5-15); ASPARTATE AMNIOTRANSFERASE,AST 18 U/L (15-37); BILIRUBIN TOTAL 0.3 mg/dL (0.2-1.0); BLOOD UREA NITROGEN,BUN 13 mg/dL (7-18); CALCIUM 8.3 mg/dL (8.7-10.3); CARBON DIOXIDE,CO2 21.7 mmol/L (21.0-32.0); CHLORIDE,CL 101 mmol/L (98-107); CREATININE 1.37 mg/dL (0.51-1.17); GLUCOSE RANDOM 128 mg/dL (70-140); POTASSIUM,K 3.9 mmol/L (3.5-5.1); SODIUM,NA 134 mmol/L (136-145)
[2024-03-07 11:34] LABS: ESTIMATED GFR 44 mL/min (>=60)
[2024-03-07] MEDS: Ketorolac 30 MG/ML SDV IM ONE (12:15)
[2024-03-07] MEDS: Methocarbamol 1,000 MG/10 ML SDV IM ONE (12:20)
== END 2024-03-07 12:30 | disposition home or self-care (01) ==
LOC: KA.ED 10:31
DX: S09.90XA Unspecified injury of head, initial encounter (principal); S13.9XXA Sprain of joints and ligaments of unspecified parts of neck, initial encounter; S70.02XA Contusion of left hip, initial encounter; S80.02XA Contusion of left knee, initial encounter; G89.4 Chronic pain syndrome; Z88.5 Allergy status to narcotic agent; X50.9XXA Other and unspecified overexertion or strenuous movements or postures, initial encounter
CPT/HCPCS: 36415; 70450; 71045; 72125; 73560-LT; 80053; 84484; 85025; 93010; 96372; 99284; J1885; J2800

== ENCOUNTER 2024-12-08 00:42 | Emergency (ER) | payer OTHER ==
[2024-12-08] MEDS: Ondansetron 4 MG/2 ML SDV IVPUSH ONE (01:11)
[2024-12-08] MEDS: diphenhydrAMINE 50 MG/ML SDV IVPUSH ONE (01:12)
[2024-12-08] MEDS: Ketorolac 30 MG/ML SDV IVPUSH ONE (01:15)
== END 2024-12-08 02:25 | disposition home or self-care (01) ==
LOC: KA.ED 00:42
DX: G43.109 Migraine with aura, not intractable, without status migrainosus (principal); Z88.5 Allergy status to narcotic agent; Z79.899 Other long term (current) drug therapy; Z86.16 Personal history of COVID-19
CPT/HCPCS: 96361; 96374; 96375; 99283-25; J1200; J1885; J2405; J2765; J7030